=== PATIENT | male | born 1995 | race Caucasian/White ===

== ENCOUNTER 2022-07-19 12:17 | Emergency (ER) | payer MEDICARE, MEDICAID, SELFPAY ==
--- NOTE | ~2022-07-19 | XR_ITS ---
XR foot RT min 3V 07/19/2022 13:15 Indication: Right foot pain after fall Procedure: 4 views right foot Comparison: No prior studies for comparison. Findings: There is hallux valgus. Lisfranc joint intact. No acute fracture, subluxation or dislocatio n. No erosive changes. There is soft tissue swelling medial to the midfoot. No foreign bodies. Impression: 1: No acute bone or joint abnormality. Reviewed, dictated and finalized at location [facility] Impression: 1: No acute bone or joint abnormality.
--- NOTE | 2022-07-19 12:27 | ED.BACK ---
HPI - Back Pain/Injury General Chief Complaint: Back Pain/Injury Stated Complaint: Back Pain Source: patient and RN notes reviewed History of Present Illness HPI Narrative: 27-year-old male presents urgent care with father at side. Patient states yesterday he was helping a friend carry some things up the stairs when both his knees got weak and buckled, causing him to fall. Patient states he fell down approximately a half flight of stairs, rolling his right ankle. Patient presents with right foot pain. Patient states yesterday he fell or caught himself falling 3 more times due to his knees buckling on him. Patient reports an old back injury which he recently received 6 weeks of physical therapy for with no relief. Patient denies any numbness or tingling, leg pain, incontinence of urine or stool, saddle anesthesia, fevers, chills, or new injury. Patient denies any head injury or LOC. Denies any chest pain, shortness of, dizziness or headache. Related Data Home Medications Medication Instructions Recorded Confirmed amitriptyline 50 mg tablet 50 mg DIRECTED 07/19/22 07/19/22 benztropine 1 mg tablet 1 mg DIRECTED 07/19/22 07/19/22 clozapine 200 mg tablet 200 mg DIRECTED 07/19/22 07/19/22 famotidine 20 mg tablet 20 mg DIRECTED 07/19/22 07/19/22 fluoride (sodium) 1.1 % dental 1 applic DIRECTED 07/19/22 07/19/22 cream (PreviDent 5000 Plus) gabapentin 600 mg tablet 600 mg DIRECTED 07/19/22 07/19/22 prazosin 5 mg capsule 5 mg DIRECTED 07/19/22 07/19/22 valbenazine 60 mg capsule 60 mg DIRECTED 07/19/22 07/19/22 (Ingrezza) Allergies Allergy/AdvReac Type Severity Reaction Status Date / Time No Known Allergies Allergy Verified 07/19/22 12:29 Review of Systems Review of Systems: CONSTITUTIONAL: Denies fever, chills, or sweats. EYES: Denies visual changes, redness, or discharge. ENT: Denies otalgia and sore throat CARDIOVASCULAR: Denies chest pain, palpitations, or edema. RESPIRATORY: Denies cough or dyspnea. GASTROINTESTINAL: Denies abdominal pain, nausea, vomiting, or diarrhea. GENITOURINARY: Denies dysuria or hematuria. SKIN: Denies rash or itching. MUSCULOSKELETAL: chronic lower back pain and right foot pain. Had bilateral knee weakness yesterday. NEUROLOGIC: Denies headache, numbness, or weakness. PMFSH Comments At the time of my signature, I reviewed and agree with the nursing past medical, surgical, social, and family history. There is no relevant family history pertinent to the patient complaint. Exam Narrative: GENERAL: This is a well-nourished, well-developed patient, in no apparent distress. HEAD: normocephalic, atraumatic. EYES: PERRL. Sclera clear/white. Vision is grossly intact. EARS: External ears normal, auditory canals clear and without drainage. Hearing grossly intact. NOSE: External nose normal with no obvious nasal discharge, nares without redness, no rhinorrhea. CARDIOVASCULAR: Regular rate and rhythm without murmurs, gallops, or rubs. RESPIRATORY: Clear to auscultation. Breath sounds equal bilaterally. No wheezes, rales, or rhonchi. GASTROINTESTINAL: Abdomen soft, non-tender, nondistended. Bowel sounds are active. No hepato-splenomegaly, or palpable masses. No guarding. SKIN: warm, intact with no suspicious lesions or rash, good texture and turgor. NEURO: awake, alert, and oriented to person, place and time. Bilateral leg pushes and pulls are noted to be equally weak. Pt able to walk, stand, and step up to exam table without issue and with no assistance. Pt denies any falls today and denies any knee weakness at this time. EXTREMITIES: No clubbing, cyanosis, or edema. Slight tenderness to right proximal/lateral foot BACK: Nontender without deformity or crepitance. No flank tenderness. Course Course Level of Care: Express Care Visit Vital Signs Vital signs: Vital Signs Temperature 98.5 F 07/19/22 12:32 Pulse Rate 94 07/19/22 12:32 Respiratory Rate 16 07/19/22 12:32
[2022-07-19 12:32] VITALS: BP 136/89; PULSE 94; RESP 16; TEMP 36.9; O2SAT 98
== END 2022-07-19 13:39 | disposition home or self-care (01) ==
PROVIDERS: Emergency Provider Nurse Practitioner Family; PCP Nurse Practitioner Family
DX: S93.601A Unspecified sprain of right foot, initial encounter (principal); W10.9XXA Fall (on) (from) unspecified stairs and steps, initial encounter
CPT/HCPCS: 73630; 99213; G0463